=== PATIENT | male | born 1955 | race Caucasian/White ===

== ENCOUNTER 2018-05-15 10:05 | Day surgery (SDC) | payer MEDICARE, OTHER ==
[~2018-05-15 10:05] MED LIST: SEVOFLURANE 15 MIN; SUCCINYLCHOLINE CHLORIDE 100 MG/5 ML SYG IV
[2018-05-15] MEDS: DEXAMETHASONE 2 MG TAB PO (11:05)
[2018-05-15] MEDS ORDERED: NEOSTIGMINE 3 MG/3 ML SYRINGE (11:59)
[2018-05-15] MEDS ORDERED: ONDANSETRON 4 MG INJ (11:59)
[2018-05-15] MEDS ORDERED: FENTAnyl 50 MCG/ML VIAL (11:59)
[2018-05-15] MEDS ORDERED: CEFAZOLIN 1 GM INJ (11:59)
[2018-05-15] MEDS ORDERED: DEXAMETHASONE 4 MG/ML 5 ML INJ (11:59)
[2018-05-15] MEDS ORDERED: PROPOFOL 20 ML (11:59)
[2018-05-15] MEDS ORDERED: MIDAZOLAM 1 MG/ML 2 ML INJ (11:59)
[2018-05-15] MEDS ORDERED: ROCURONIUM 50 MG INJ (11:59)
[2018-05-15] MEDS ORDERED: GLYCOPYRROLATE 0.4 MG INJ (11:59)
[2018-05-15] MEDS ORDERED: TRANEXAMIC ACID 1,000 MG in DEXTROSE 5% 100 ML IVPB (12:00)
[2018-05-15] MEDS ORDERED: CEFAZOLIN 2 GM/50 ML (PMX) 50 ML IVPB (12:00)
[2018-05-15] MEDS ORDERED: BUPIVACAINE 0.5% (SDV) 30 ML, morphine SULFATE (PF) 8 MG, EPINEPHrine 0.3 MG, KETOROLAC... IRR (12:00)
[2018-05-15] MEDS ORDERED: ALBUTEROL 0.083% (NEB) 2.5 MG/3 ML AMP HHN (13:30)
[2018-05-15] MEDS ORDERED: LABETALOL HCL 20MG INJ IV (13:30)
[2018-05-15] MEDS ORDERED: IPRATROPIUM (NEB) 0.5 MG/2.5 ML AMP HHN (13:30)
[2018-05-15] MEDS ORDERED: ONDANSETRON 4 MG INJ IV (13:30)
[2018-05-15] MEDS ORDERED: FENTAnyl 50 MCG/ML VIAL IV ×3 (13:30)
[2018-05-15] MEDS ORDERED: EPHEDrine SULFATE 50 MG/5 ML SYG IV (13:30)
[2018-05-15] MEDS ORDERED: MIDAZOLAM 1 MG/ML 2 ML INJ IV (13:30)
[2018-05-15] MEDS ORDERED: hydrALAzine 20 MG INJ IV (13:30)
[2018-05-15] MEDS ORDERED: HYDROmorphONE 1 MG/5 ML IV SYRINGE IV ×3 (13:30)
[2018-05-15] MEDS ORDERED: DIPHENHYDRAMINE 50 MG INJ IV (13:30)
[2018-05-15] MEDS ORDERED: TRIMETHOBENZAMIDE 100 MG/ML VIAL IM (13:30)
[2018-05-15] MEDS ORDERED: OXYCODONE/ACETAMINOPHEN (5/325) TAB PO ×2 (13:30)
[2018-05-15] MEDS ORDERED: PHENYLephrine (100 MCG/ML) 5ML SYG (13:35)
[2018-05-15] MEDS ORDERED: SUGAMMADEX SODIUM 200 MG/2 ML VIAL IV (14:11)
[2018-05-15] MEDS: MEPERIDINE 25 MG INJ IV (15:08)
== END 2018-05-15 17:00 | disposition home or self-care (01) ==
LOC: SDS 10:05
DX: M76.11 Psoas tendinitis, right hip (principal); I10 Essential (primary) hypertension; E78.5 Hyperlipidemia, unspecified; E11.9 Type 2 diabetes mellitus without complications; J44.9 Chronic obstructive pulmonary disease, unspecified; E66.01 Morbid (severe) obesity due to excess calories; Z68.38 Body mass index [BMI] 38.0-38.9, adult
CPT/HCPCS: 29999; 73501; 73530; 82962